=== PATIENT | female | born 1995 | race Hispanic/Latino ===

== ENCOUNTER → 2017-07-12 | Day surgery (SDC) | payer OTHER ==
[2017-07-11 14:38] LABS: BASOPHILS # (AUTO) 0.1 (0.0-0.1); BASOPHILS % 0.6 % (0.0-1.0); EOSINOPHILS # (AUTO) 0.1 (0.0-0.4); EOSINOPHILS % 1.3 % (0.0-6.0); HEMATOCRIT 35.1 % (34.2-44.1); HEMOGLOBIN 12.5 g/dL (12.0-16.0); LYMPHOCYTES # (AUTO) 4.2 (1.0-3.2); LYMPHOCYTES % 39.9 % (18.0-39.1); MEAN CORPUSCULAR HEMOGLOBIN 31.2 pg (28-32); MEAN CORPUSCULAR HGB CONC 35.6 g/dL (31-35); MEAN CORPUSCULAR VOLUME 87.5 fL (81-99); MONOCYTES # (AUTO) 0.6 (0.2-0.8); MONOCYTES % 5.4 % (4.4-11.3); NEUTROPHILS # (AUTO) 5.6 (2.1-6.9); NEUTROPHILS % 52.5 % (38.7-80.0); PLATELET COUNT 291 x10e3/uL (140-360); RED BLOOD COUNT 4.01 x10e6/uL (3.6-5.1); RED CELL DISTRIBUTION WIDTH 12.7 % (11.7-14.4)
[2017-07-11 14:43] LABS: BILIRUBIN,URINE NEGATIVE (NEGATIVE); KETONES,URINE 1+ (NEGATIVE); LEUKOCYTE ESTERASE ,URINE NEGATIVE (NEGATIVE); NITRITE,URINE NEGATIVE (NEGATIVE); PROTEIN,URINE DIPSTICK NEGATIVE (NEGATIVE); URINE UROBILINOGEN 0.2 mg/dL (0.2 - 1)
[2017-07-11 14:44] LABS: CLARITY,URINE CLEAR (CLEAR); COLOR,URINE YELLOW (YELLOW)
[~2017-07-12] MED LIST: ADVIL200 M1 PO; CEFAZOLIN SOD 1 GM/NS 50ML 50 ML IV ONE; FENTANYL CITRATE/PF 100MCG/2 ML INJ ONE; KETOROLAC TROMETHAMINE 30 MG/ML VIAL ONE; LIDOCAINE HCL 2% LOCAL INJ 5 ML SDV VIAL INJ ONE; MIDAZOLAM HCL 2 MG/2 ML VIAL ONE; MISOPROSTOL 100 MCG TAB ONE; ONDANSETRON HCL INJ 2 MG/ML VIAL ONE; OXYTOCIN INJ 10 UNIT/ML VIAL ONE; PRENATAL VITAM1 EAC2; PROPOFOL IV EMULSION 10 MG/ML 20 ML VIAL ONE; ROBITUSSIN-COU237 ML PO; SEVOFLURANE INHAL SOLN 250 ML PEN BTL ONE; SILVER NITRATE SWABS ONE
--- NOTE | 2017-07-12 15:55 | Operative Report ---
DATE OF PROCEDURE: July 12, 2017 PREOPERATIVE DIAGNOSIS: Missed , A positive blood type. POSTOPERATIVE DIAGNOSIS: Missed , A positive blood type. TITLE OF PROCEDURE: Dilatation and suction curettage. ANESTHESIA: General with Dr. Sawant and , mobile unit assistant. INDICATIONS FOR THE OPERATION: The patient is a 22-year-old 1, para 0, with last menstrual period May 02, 2017, at 10 weeks by dates, who presents with no heart tones noted on ultrasound with an empty 3 cm gestational sac consistent with blighted ovum. She is therefore here for dilatation and curettage secondary to missed . She is therefore taken to the operating room at this time. FINDINGS AT SURGERY: There was an 8 to 10 week sized anteverted uterus. There cervix was closed and had to be dilated with Salgado dilators up to number 29. Products of conception were easily obtained and sent to pathology. A number 9 suction curet was used. At the end of the procedure, there was bleeding from the tenaculum site, and this was stitched up using a running lock stitch of 2-0 chromic suture. PROCEDURE: The patient was taken to the operating room and placed on the table in the supine position. General anesthesia was administered. The patient was placed in the lithotomy position. The perineum was prepared and draped in the usual sterile manner. The bladder was drained by in-and-out catheterization. Pelvic exam revealed an 8 to 10 week sized anteverted, anteflexed uterus with no adnexal masses. A weighted speculum was placed in the posterior vaginal wall. Then with the aid of a right-angle retractor, the anterior lip of the cervix was grasped with a single-toothed tenaculum. Then with Salgado dilators, the endocervical canal was dilated up to number 29. Then with a number 9 suction curet, the endometrial cavity was curetted. Tissue was obtained and sent to pathology for definitive diagnosis. Curettage was continued until no further tissue was obtained, and then a sharp curet was used to assess the endometrial cavity. The uterine cry was felt on all 4 alvarez of the uterus, and the procedure was deemed terminated. All the instruments were removed. It was noted there was some bleeding from the site of the tenaculum, and this required stitching with a running lock stitch of 2-0 chromic suture. After the stitch was done, good hemostasis was in evidence. There was minimal bleeding noted; and, therefore, the procedure was deemed terminated. Cytotec 200 mcg was placed in the rectum for prevention of uterine atony. At this point, there were no complications noted except for the bleeding from the tenaculum site. The patient tolerated the procedure well and was transferred from the operating room to the recovery room in stable condition. Job#: [id number]
== END | disposition home or self-care (01) ==
LOC: OR 10:44
PROVIDERS: ATTEND Obstetrics & Gynecology
DX: O02.1 Missed abortion (principal); Z67.10 Type A blood, Rh positive; G43.909 Migraine, unspecified, not intractable, without status migrainosus; K59.00 Constipation, unspecified; F32.9 Major depressive disorder, single episode, unspecified; F41.9 Anxiety disorder, unspecified; Z01.812 Encounter for preprocedural laboratory examination; Z87.891 Personal history of nicotine dependence
CPT/HCPCS: 36415; 59812; 81003; 81025; 85025; 86850; 86900; 88305; J1885; J2001; J2250; J2405; J2590; 88304

== ENCOUNTER 2018-02-08 14:48 | Emergency (ER) | payer OTHER ==
[~2018-02-08] VITALS: Ht 144.8 cm; Wt 52.2 kg
[~2018-02-08 14:48] MED LIST changes: -CEFAZOLIN SOD 1 GM/NS 50ML 50 ML IV ONE; -FENTANYL CITRATE/PF 100MCG/2 ML INJ ONE; -KETOROLAC TROMETHAMINE 30 MG/ML VIAL ONE; -LIDOCAINE HCL 2% LOCAL INJ 5 ML SDV VIAL INJ ONE; -MIDAZOLAM HCL 2 MG/2 ML VIAL ONE; -MISOPROSTOL 100 MCG TAB ONE; -ONDANSETRON HCL INJ 2 MG/ML VIAL ONE; -OXYTOCIN INJ 10 UNIT/ML VIAL ONE; -PROPOFOL IV EMULSION 10 MG/ML 20 ML VIAL ONE; -SEVOFLURANE INHAL SOLN 250 ML PEN BTL ONE; -SILVER NITRATE SWABS ONE
[2018-02-08 15:43] LABS: BASOPHILS % 0.4 % (0.0-1.0); EOSINOPHILS # (AUTO) 0.1 (0.0-0.4); EOSINOPHILS % 0.8 % (0.0-6.0); HEMATOCRIT 36.4 % (34.2-44.1); HEMOGLOBIN 12.9 g/dL (12.0-16.0); LYMPHOCYTES # (AUTO) 3.2 (1.0-3.2); MEAN CORPUSCULAR HEMOGLOBIN 30.8 pg (28-32); MEAN CORPUSCULAR HGB CONC 35.4 g/dL (31-35); MEAN CORPUSCULAR VOLUME 86.9 fL (81-99); MONOCYTES # (AUTO) 0.5 (0.2-0.8); MONOCYTES % 5.3 % (4.4-11.3); NEUTROPHILS # (AUTO) 6.1 (2.1-6.9); NEUTROPHILS % 61.3 % (38.7-80.0); PLATELET COUNT 279 x10e3/uL (140-360); RED BLOOD COUNT 4.19 x10e6/uL (3.6-5.1); RED CELL DISTRIBUTION WIDTH 12.6 % (11.7-14.4)
[2018-02-08 15:48] LABS: BILIRUBIN,URINE NEGATIVE (NEGATIVE); CLARITY,URINE SL CLOUDY (CLEAR); COLOR,URINE YELLOW (YELLOW); KETONES,URINE TRACE (NEGATIVE); LEUKOCYTE ESTERASE ,URINE NEGATIVE (NEGATIVE); NITRITE,URINE NEGATIVE (NEGATIVE); PREGNANCY TEST, URINE POSITIVE (NEGATIVE); PROTEIN,URINE DIPSTICK NEGATIVE (NEGATIVE); URINE UROBILINOGEN 0.2 mg/dL (0.2 - 1)
[2018-02-08 15:56] LABS: BACTERIA,URINE RARE /HPF; EPITHELIAL CELLS,URINE FEW /LPF; MUCUS,URINE FEW (RARE); RBC,URINE 0-5 /HPF (0-5)
[2018-02-08 15:59] LABS: ALANINE AMINOTRANSFERASE 15 IU/L (0-55); ALBUMIN 4.4 g/dL (3.5-5.0); ALBUMIN/GLOBULIN RATIO 1.4 (0.8-2.0); ALKALINE PHOSPHATASE 56 IU/L (40-150); ANION GAP 14.2 mmol/L (8-16); BLOOD UREA NITROGEN 7 mg/dL (7-26); BUN/CREATININE RATIO 11 (6-25); CALCIUM 9.9 mg/dL (8.4-10.2); CARBON DIOXIDE 25 mmol/L (22-29); CHLORIDE 102 mmol/L (98-107); CREATININE, SERUM 0.63 mg/dL (0.57-1.11); EST GLOMERULAR FILTRATION RATE > 60 ML/MIN (60-); GLUCOSE 111 mg/dL (74-118); POTASSIUM 3.2 mmol/L (3.5-5.1); SODIUM 138 mmol/L (136-145)
[2018-02-08 17:47] VITALS: BP 119/79
== END 2018-02-08 17:43 | disposition home or self-care (01) ==
LOC: ER 14:48
DX: R10.32 Left lower quadrant pain (principal); K59.00 Constipation, unspecified; Z33.1 Pregnant state, incidental
CPT/HCPCS: 36415; 80053; 81001; 81025; 85025; 99283